=== PATIENT | female | born 2000 | race Two or more races ===

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

== ENCOUNTER 2021-09-23 12:58 | Emergency (ER) | payer BC, OTHER ==
[~2021-09-23] VITALS: Ht 157.5 cm; Wt 72.6 kg
[2021-09-23 13:17] VITALS: BP 96/55
--- NOTE | 2021-09-23 13:21 | NUR ---
small lac - left index finger - base - accidentally cut while peeling avocado
== END 2021-09-23 13:40 | disposition home or self-care (01) ==
LOC: ER 13:03
DX: S61.211A Laceration without foreign body of left index finger without damage to nail, initial encounter (principal); W26.9XXA Contact with unspecified sharp object(s), initial encounter; Y93.89 Activity, other specified; Y92.89 Other specified places as the place of occurrence of the external cause; Y99.8 Other external cause status